=== PATIENT | male | born 1930 | race Caucasian/White ===

== ENCOUNTER → 2016-05-11 | Outpatient (CLI) | payer MEDICARE, OTHER ==
[~2016-05-11] MED LIST: ASPI-586 PO; BARIUM SUSPENSION 2.1% (VANILLA SILQ) 450 ML PO ONE; CLOP75TA69 PO; LEVO500T2 PO; PHEN-640 PO; ROPI0.5T2 PO; SIMV80TA3 PO
--- NOTE | 2016-05-11 13:24 | Diagnostic Imaging Report ---
PROCEDURE: CT chest, abdomen, and pelvis without contrast. TECHNIQUE: Multiple contiguous axial images were obtained through the chest, abdomen, and pelvis without the use of intravenous contrast. INDICATION: Bladder CA. COMPARISON: 11/05/2015. FINDINGS: CT chest: The lungs are well aerated. No infiltrates or masses are present. No evidence of emphysematous changes or bronchiectasis. No mediastinal or hilar adenopathy of pathologic size. Aorta is calcified without evidence of aneurysm. No pleural effusions or pericardial effusions. IMPRESSION: No changes to suggest metastatic disease. CT abdomen and pelvis without: Liver appears normal. Gallbladder is normal. Bile ducts are normal. The pancreas is normal. The spleen is normal. The adrenal glands are normal. Kidneys show no evidence of obstruction or calculi. Previously described cystic lesion off the lower pole of the left kidney is again noted. This has not changed in appearance. The aorta is calcified without evidence of aneurysm. No intra-abdominal adenopathy. The stomach and small bowel are not distended. The colon shows moderate stool burden throughout, consistent with some constipation. There are a few diverticula in the sigmoid colon though no evidence of diverticulitis. The prostate is enlarged without significant change. Bladder does show some urine present with smooth bladder wall. Surgical changes from right inguinal hernia noted. Sclerotic lesion again noted along the acetabulum of the right iliac wing which is unchanged. No new lesions have developed. IMPRESSION: 1. Stable CT abdomen and pelvis with no changes to suggest metastatic disease. 2. Findings consistent with moderate constipation. Dictated by: Dictated on workstation # [id number]
--- NOTE | 2016-05-11 15:49 | Diagnostic Imaging Report ---
INDICATION: Bladder cancer. TECHNIQUE: Whole body bone scan performed in the routine fashion with IV injection of 26.7 mCi of technetium 99m MDP, with comparison to 11/05/2015. FINDINGS: There is physiologic uptake of the tracer throughout the skeleton. There is abnormal increased uptake over the right shoulder which is unchanged compared to the prior study. This correlates with marked degenerative change of the left shoulder noted on CT study. There is no osseous metastatic disease evident. There are mild degenerative changes of both knees. IMPRESSION: Stable bone scan compared with 11/05/2015. Increased uptake over the shoulder is seen promptly which is probably degenerative and unchanged compared to the prior study. There is mild degenerative change in both knees. Dictated by: Dictated on workstation # [id number]
== END ==
LOC: CARD 11:30
PROVIDERS: ATTEND Urology
DX: C67.9 Malignant neoplasm of bladder, unspecified (principal)
CPT/HCPCS: 71250; 74176; 78306

== ENCOUNTER 2019-02-03 03:01 | Inpatient (IN) | payer MEDICARE, OTHER ==
[~2019-02-03] VITALS: Ht 170 cm; Wt 74.8 kg
[~2019-02-03 03:01] MED LIST changes: -BARIUM SUSPENSION 2.1% (VANILLA SILQ) 450 ML PO ONE; +SIMV80TA21 PO; -SIMV80TA3 PO
--- NOTE | 2019-02-03 03:01 | NUR ---
REPORT RECEIVED FROM RUDDY CHRIS - [facility] PROCESS PLANT OPERATOR.
--- NOTE | 2019-02-03 03:43 | NUR ---
RUDDY CHRIS FROM [facility] ER CALLED TO INFORM THIS RN THAT PT U.A. POSITIVE FOR UTI AND THAT PT RECEIVED ROCEPHIN 1G AND HAD A MILD REACTION TO THIS ABX. RUDDY CHRIS ALSO INFORMED THIS RN THAT PT RECEIVED 25MG BENADRYL IV PRIOR TO LEAVING ER WITH EMS.
--- NOTE | 2019-02-03 04:14 | NUR ---
KAMRAN MOJICA admitted to room 508-1, with an admitting diagnosis of SHORTNESS OF AIR, ELEVATED TROPONIN, on 02/03/19 from via STRETCHER, accompanied by EMS STAFF.KAMRAN MOJICA introduced to surroundings, call light, bed controls, phone, TV, temperature control, lights, meal times, smoking policy, visitor policy, side rail policy, bathrooms and showers. Patient Rights given to patient in the handbook. KAMRAN MOJICA verbalizes understanding that [facility] is not responsible for the loss or damage to any personal effects or valuables that are kept in the patients possession during their hospitalization. KAMRAN MOJICA verbalizes understanding of Interdisciplinary Patient Education. Patient and/or family were informed about the Rapid Response Team and its purpose.
[2019-02-03] MEDS ORDERED: HEParin DRIP 25000 UNIT/500ML 500 ML IV ONE (04:30)
--- NOTE | 2019-02-03 04:39 | NUR ---
THIS RN CALLED DR. STANLEY TO INFORM HIM OF PT'S ARRIVAL AND TO RECEIVE ORDERS. SEE ORDER HISTORY.
[2019-02-03 05:23] VITALS: BP 83/50
--- NOTE | 2019-02-03 05:53 | NUR ---
THIS RN CALLED DR. STANLEY TO INFORM HIM OF ROGER RED BLOOD IN URINE. THIS RN INFORMED HIM THAT 1550ML DRAINED FROM NOGUERA CATHETER COLLECTION BAG THAT IS ROGER RED WITH BLOOD CLOTS. NO NEW ORDERS OBTAINED AT THIS TIME.
[2019-02-03 06:03] LABS: HEMOGLOBIN 13.1 G/DL (13.3-17.7); MEAN PLATELET VOLUME 11.5 FL (7.4-10.4); RED CELL DISTRIBUTION WIDTH 14.5 % (10.0-14.5); WHITE BLOOD COUNT 8.3 10^3/uL (4.3-11.0)
[2019-02-03 06:22] LABS: ALBUMIN 3.4 GM/DL (3.2-4.5); BILIRUBIN,TOTAL 0.6 MG/DL (0.1-1.0); CALCIUM 8.6 MG/DL (8.5-10.1); CREATININE SERUM 1.36 MG/DL (0.60-1.30); TOTAL PROTEIN 5.8 GM/DL (6.4-8.2)
--- NOTE | 2019-02-03 06:25 | NUR ---
SCDs REMOVED FROM PT'S BLE DUE TO EXTREME DISCOMFORT. PT SUFFERS FROM RESTLESS LEG SYNDROME AND STATED THAT HE "CAN'T DO IT ANYMORE."
[2019-02-03] MEDS ORDERED: FLU QUADRIvalent (5+ YOA) 2019-2020 (AFLURIA) 0.5 ML IM ONE (07:15)
--- NOTE | 2019-02-03 07:22 | Consultation-Cardiology ---
HPI-Cardiology Cardiology Consultation Date of Consultation 02/03/19 Date of Admission Time Seen by Provider: 07:16 Indication: Non-ST elevation myocardial infarction HPI 88 years old gentleman with history of permanent pacemaker, aortic valve stenosis. Had extensive workup done in [facility] in May 2018 for possible valve replacement, he was asymptomatic at that time and decision was made to treat him conservatively. Over the past month, he started having increasing shortness of breath with exertion, has been worsening until last night where he was unable to lay down flat due to increased shortness of breath. Came into the emergency room for evaluation. He was noted to have mild elevation in troponin level. He denied any active chest pain. No palpitation. No syncope or near syncopal episode he was started on heparin drip and started to have hematuria Home Medications & Allergies Allergies: Coded Allergies: ceftriaxone (Verified Allergy, Mild, itching, 12/06/14) Iodinated Contrast Media - IV Dye (Verified Allergy, Unknown, RASH, 12/03/14) Home Medication List Reviewed: Yes KHD-Czipxm-Sxvzjw Hx Patient Social History Marital Status: Employed/Student: retired Alcohol Use: Rarely Uses Recreational Drug Use: No Smoking Status: Never a Smoker Recent Foreign Travel: No Recent Infectious Disease Expo: No Recent Hopitalizations: No Physical Abuse Screen: No Sexual Abuse: No Immunizations Up To Date Date of Pneumonia Vaccine: Feb 03, 2018 Date of Influenza Vaccine: Feb 03, 2018 Past Medical History Discussed below Family Medical History Family History: FH: breast cancer G8 SISTER Myocardial infarction G8 BROTHER Review of Systems-General Review of Systems Constitutional: see HPI; No chills, No diaphoresis, No dizziness, No fever; malaise; No weakness, No weight gain, No weight loss, No other EENTM: see HPI, no symptoms reported Respiratory: see HPI; No cough; dyspnea on exertion; No hemoptysis; orthopnea; No phlegm; short of breath; No stridor, No wheezing, No other Cardiovascular: see HPI; No chest pain; edema; No Hx of Intervention, No palpitations, No syncope, No vascular heart diseas, No other Gastrointestinal: no symptoms reported, see HPI Genitourinary: see HPI, hematuria Musculoskeletal: no symptoms reported, see HPI Skin: no symptoms reported, see HPI Psychiatric/Neurological: No Symptoms Reported, See HPI Reviewed Test Results Reviewed Test Results Lab Laboratory Tests Test 02/03/19 05:50 Range/Units White Blood Count 8.3 4.3-11.0 10^3/uL Red Blood Count 4.71 4.35-5.85 10^6/uL Hemoglobin 13.1 L 13.3-17.7 G/DL Hematocrit 41 40-54 % Mean Corpuscular Volume 86 80-99 FL Mean Corpuscular Hemoglobin 28 25-34 PG Mean Corpuscular Hemoglobin Concent 32 32-36 G/DL Red Cell Distribution Width 14.5 10.0-14.5 % Platelet Count 159 130-400 10^3/uL Mean Platelet Volume 11.5 H 7.4-10.4 FL Prothrombin Time 14.0 12.2-14.7 SEC INR Comment 1.0 0.8-1.4 Activated Partial Thromboplast Time 98 H 24-35 SEC Sodium Level 142 135-145 MMOL/L Potassium Level 4.0 3.6-5.0 MMOL/L Chloride Level 108 H 98-107 MMOL/L Carbon Dioxide Level 23 21-32 MMOL/L Anion Gap 11 5-14 MMOL/L Blood Urea Nitrogen 21 H 7-18 MG/DL Creatinine 1.36 H 0.60-1.30 MG/DL Estimat Glomerular Filtration Rate 50 BUN/Creatinine Ratio 15 Glucose Level 95 70-105 MG/DL Calcium Level 8.6 8.5-10.1 MG/DL Corrected Calcium 9.1 8.5-10.1 MG/DL Total Bilirubin 0.6 0.1-1.0 MG/DL Aspartate Amino Transf (AST/SGOT) 23 5-34 U/L Alanine Aminotransferase (ALT/SGPT) 23 0-55 U/L Alkaline Phosphatase 55 40-136 U/L Troponin I 0.738 *H <0.028 NG/ML B-Type Natriuretic Peptide 2257.0 H <100.0 PG/ML Total Protein 5.8 L 6.4-8.2 GM/DL Albumin 3.4 3.2-4.5 GM/DL Thyroid Stimulating Hormone (TSH) 2.55 0.35-4.94 UIU/ML Physical Exam Physical Exam Vital Signs Vital Signs - First Documented 02/03/19 02/03/19 04:22 05:23 Temp 36.3 Pulse 78 Resp 16 B/P (MAP) 83/50 Pulse Ox 98 O2 Delivery Nasal Cannula O2 Flow Rate 2.00 Capillary Refill : Height, Weight, BMI Height: 5'9.00" Weight: 179lbs. 0.0oz. 81.453218vv; 27.75 BMI Method: General Appearance: WD/WN, Mild Distress Eyes: Bilateral Eye Normal Inspection, Bilateral Eye PERRL, Bilateral Eye EOMI HEENT: PERRL/EOMI, TMs Normal, Normal ENT Inspection, Pharynx Normal, Moist Mucous Membranes Neck: Full Range of Motion, Normal Inspection, Non Tender, Supple, Carotid Bruit Respiratory: Chest Non Tender, No Accessory Muscle Use, No Respiratory Distress, Crackles Cardiovascular: Regular Rate, Rhythm, No Edema, No JVD, Normal Peripheral Pulses, Systolic Murmur, Gallop/S3 Gastrointestinal: Normal Bowel Sounds, No Organomegaly, No Pulsatile Mass, Non Tender, Soft Back: Normal Inspection, No CVA Tenderness, No Vertebral Tenderness Extremity: Normal Capillary Refill, Normal Inspection, Normal Range of Motion, Non Tender, No Calf Tenderness, Pedal Edema (Mild) Neurologic/Psychiatric: Alert, Oriented x3, No Motor/Sensory Deficits, Normal Mood/Affect Skin: Normal Color, Warm/Dry Lymphatic: No Adenopathy A/P-Cardiology Admission Diagnosis Acute non-ST elevation myocardial infarctions Coronary artery disease Congestive heart failure, acute left ventricular systolic dysfunction, probably secondary to valvular heart disease Aortic valve stenosis Assessment/Plan Acute non-ST elevation myocardial infarction, baseline paced rhythm, no acute EKG changes, persistent elevation in troponin. Receiving heparin drip, has been on Plavix as an outpatient, currently started on aspirin Coronary artery disease reported that he had a stress test in May 2018 and reported negative done in [facility] Aortic valve stenosis, probably severe, was evaluated in [facility] for possible valve replacement, decision was made to treat him conservatively due to the fact that he was asymptomatic, for the past month he has been having increasing shortness of breath. He contacted Dr. Elder and he is scheduled to see him next week Congestive heart failure, acute left ventricular systolic dysfunction, probably secondary to valvular heart disease, underlying coronary artery disease cannot be excluded at this time, may need a cardiac catheterization Permanent pacemaker, not sure what type of pacemaker he has. Had recent pacemaker checked. Continue to monitor Hypotension, received IV Lasix 40 mg, continue to monitor blood pressure closely, cannot tolerate beta blockers, PAMELA inhibitor and/or ARB due to hypotension Hyperlipidemia, maintained on simvastatin Hematuria, history of bladder cancer, reported that he has been in remission Clinical Quality Measures DVT/VTE Risk/Contraindication: Risk Factor Score Per Nursin RFS Level Per Nursing on Admit: 4+=Very High LONDON STANLEY MD Feb 03, 2019 07:21
[2019-02-03 08:00] VITALS: BP 125/72
--- NOTE | 2019-02-03 08:36 | History & Physical-Hospitalist ---
History of Present Illness HPI/Chief Complaint Pt is an 88yoCM with a PMH of aortic stenosis, CAD, bladder cancer, melanoma, and pacemaker placement who presented to the ER duet o orthopnea. He reports that he underwent workup for his aortic valve but as he was asymptomatic conservative management was recommended. Over the past couple of weeks he has not been able to walk his normal 2-3 miles with his due to weakness and shortness of breath. Last night when he laid down to go to bed he was unable to catch his breath and he decided to seek evaluation in the ER. There he was found to have a mildly elevated troponin and was [place] [facility] [place]. He was also started on a heparin gtt due to concern for NSTEMI. Overnight he developed miguel red blood in his catheter. Source: patient, family Date Seen 02/03/19 Time Seen by a Provider: 07:45 Attending Physician Jose Ruvalcaba MD PCP Davon Veronica DO Referring Physician Date of Admission Feb 03, 2019 at 04:16 Home Medications & Allergies Home Medications Reviewed patient Home Medication Reconciliation performed by pharmacy medication reconciliations instructor adjunct surgical technician and/or nursing. Patients Allergies have been reviewed. Allergies Allergies Coded Allergies ceftriaxone (Verified Allergy, Mild, itching, 12/06/14) Iodinated Contrast Media - IV Dye (Verified Allergy, Unknown, RASH, 12/03/14) Past Upjlwxi-Xchbkx-Cqxozy Hx Past Med/Social Hx: Reviewed Nursing Past Med/Soc Hx Patient Social History Marrital Status: Employed/Student: retired Alcohol Use: Rarely Uses Alcohol Beverage of Choice: Beer Recreational Drug Use: No Smoking Status: Never a Smoker Physical Abuse Screen: No Sexual Abuse: No Recent Foreign Travel: No Contact w/other who traveled: No Recent Hopitalizations: No Recent Infectious Disease Expo: No Immunizations Up To Date Pediatric: No Date of Pneumonia Vaccine: Feb 03, 2018 Date of Influenza Vaccine: Feb 03, 2018 Seasonal Allergies Seasonal Allergies: No Past Medical History Surgeries: Abdominal, Appendectomy, Pacemaker Cardiac: Coronary Artery Disease, Irregular Heartbeat, Valvular Heart Disease Cancer: Bladder, Skin (melanoma) Did You Recieve Any Treatments: Yes What Type of Treatment Did You: Chemotherapy, Surgical Intervention Cancer: RECENT SURGERY FOR SKIN CANCER REMOVAL 01/31/19 FROM LT AXILLARY AREA AND LT FOREARM. History of Blood Disorders: No Adverse Reaction to Blood Mendez: No Family History Reviewed Nursing Family Hx FH: breast cancer G8 SISTER Myocardial infarction G8 BROTHER Review of Systems Constitutional: No chills, No fever; weakness EENTM: no symptoms reported Respiratory: dyspnea on exertion, short of breath Cardiovascular: No chest pain, No syncope; vascular heart diseas Gastrointestinal: no symptoms reported Genitourinary: decreased output, hematuria Musculoskeletal: no symptoms reported Skin: hx of skin cancer Psychiatric/Neurological: No Symptoms Reported Physical Exam Physical Exam Vital Signs Vital Signs - First Documented 02/03/19 02/03/19 04:22 05:23 Temp 36.3 Pulse 78 Resp 16 B/P (MAP) 83/50 Pulse Ox 98 O2 Delivery Nasal Cannula O2 Flow Rate 2.00 Capillary Refill : Height, Weight, BMI Height: 5'9.00" Weight: 179lbs. 0.0oz. 81.234428be; 27.75 BMI Method: General Appearance: No Apparent Distress, WD/WN HEENT: PERRL/EOMI, Moist Mucous Membranes; No Scleral Icterus (L), No Scleral Icterus (R) Neck: Supple; No Lymphadenopathy (L), No Lymphadenopathy (R) Respiratory: Lungs Clear, No Respiratory Distress Cardiovascular: Regular Rate, Rhythm, Systolic Murmur Gastrointestinal: Normal Bowel Sounds, Non Tender, Soft Genital/Rectal: Other (pritchett in place with hematuria) Extremity: No Calf Tenderness, No Pedal Edema Neurologic/Psychiatric: Alert, Oriented x3, Normal Mood/Affect Skin: Normal Color, Warm/Dry Results Results/Procedures Labs Laboratory Tests 02/03/19 05:50 Patient resulted labs reviewed. Assessment/Plan Admission Diagnosis NSTEMI Admission Status: Inpatient Order (span 2 midnights) Reason for Inpatient Admission: elevated troponin, worsening aortic stenosis Assessment and Plan NSTEMI Aortic Stenosis Echo ordered, being done while I was in her room Discussed with Dr Chavez, likely worsening aortic stenosis Trend troponin Telemetry Currently on heparin gtt- if troponin trends down with DC H/o bladder cancer Hematuria Dr Mitchell consulted, recommends CBI Attempt to get off heparin as soon as possible DVT PPX: on heparin Clinical Quality Measures DVT/VTE Risk/Contraindication: Risk Factor Score Per Nursin RFS Level Per Nursing on Admit: 4+=Very High JOSE RUVALCABA MD Feb 03, 2019 08:36
[2019-02-03] MEDS: ASPIRIN E.C. 81 MG (ECOTRIN) TAB PO SCH (09:00)
[2019-02-03] MEDS ORDERED: CLOP75TA28 PO (10:32)
[2019-02-03] MEDS ORDERED: LORA10TA76 PO (10:32)
[2019-02-03] MEDS ORDERED: ROPI1TAB2 PO (10:32)
[2019-02-03] MEDS ORDERED: HYDR-3812 PO (10:33)
--- NOTE | 2019-02-03 10:33 | NUR ---
SPOKE WITH THE PATIENT ABOUT HIS MEDICATIONS. WE WENT OVER THE EXT MED HX AND HE VERIFIED HOW HE TAKES THEM. HE STATES HE TAKES AN OTC ANTIHISTAMINE, HE IS UNSURE WHICH SPECIFIC ONE HE TAKES, I ADDED CLARITIN AT THIS TIME.
[2019-02-03 12:00] VITALS: BP 124/74
--- NOTE | 2019-02-03 12:44 | CONSULTATION REPORT ---
DATE OF SERVICE: 02/03/2019 ATTENDING PHYSICIAN: Dr. Ruvalcaba. SUMMARY: An 88-year-old white man, known to me because of history of bladder tumor, last two cystoscopies at the office were negative for recurrence, has been transferred from [place] because of question [place]. He was started on heparin and then started having gross hematuria. A catheter was inserted with bloody urine connected to a catheter, but is draining well and there are no clots that I could see. A repeat troponin is pending to decide on the next step cardiac grossman. IMPRESSION: Gross hematuria secondary to blood thinners with a history of cancer of the bladder. PLAN: If needed, a 3-way catheter with CBI with sterile water. Later on, he will need a cystoscopy. Hopefully, that there is no cardiac issue and he can be taken off the heparin, follow up a CBC and possible transfuse p.r.n. I told Dr. Grove, the patient and his that I am going for a meeting this weekend leaving this afternoon; however, I will be accessible by phone if need anything. Job ID: [id number] DocumentID: [id number] Dictated Date: 02/03/2019 09:29:56 Drawbridge Operator Date: 02/03/2019 12:43:50 Dictated By: NISSA ROBLEDO MD
[2019-02-03] MEDS ORDERED: ACETAMINOPHEN 325 MG TABLET PO PRN (12:45)
[2019-02-03] MEDS ORDERED: ANTACID SUSP 30 ML UDC (MYLANTA) PO PRN (12:45)
[2019-02-03] MEDS ORDERED: MILK OF MAGNESIA 400 MG/5 ML 30 ML UDC PO PRN (12:45)
[2019-02-03] MEDS ORDERED: ONDANSETRON 4 MG/2 ML (SDV) Z0FRAN IV PRN (12:45)
[2019-02-03] MEDS ORDERED: NON-FORMULARY MEDICATION 1 EA EA (Hydrocodone/Acetaminophen (Hydrocodone-Acetamin 5-325 mg PO PRN (12:45)
[2019-02-03] MEDS ORDERED: MELATONIN 3 MG TABLET PO PRN (12:45)
[2019-02-03] MEDS ORDERED: BISACODYL 10 MG SUPP (DULCOLAX) PR PRN (12:45)
[2019-02-03] MEDS ORDERED: BENZONATATE 100 MG (TESSALON) CAPSULE PO PRN (12:45)
[2019-02-03] MEDS ORDERED: HYDROcodone/APAP 5 MG/325 MG (LORTAB) TAB PO PRN (13:30)
[2019-02-03 16:00] VITALS: BP 96/61
[2019-02-03 20:00] VITALS: BP 149/88
[2019-02-03] MEDS: rOPINIRole 1 MG (REQUIP) TABLET PO SCH (21:00)
[2019-02-03] MEDS ORDERED: NON-FORMULARY MEDICATION 1 EA EA (Simvastatin 80 MG) PO SCH (21:00)
[2019-02-03] MEDS ORDERED: NON-FORMULARY MEDICATION 1 EA EA (Ropinirole HCl 1 MG) PO SCH (21:00)
[2019-02-03] MEDS: SIMvastatin 40 MG (ZOCOR) TAB PO SCH (21:00)
[2019-02-04] VITALS: BP 144/83
[2019-02-04 03:08] LABS: HEMOGLOBIN 12.4 G/DL (13.3-17.7); MEAN PLATELET VOLUME 11.9 FL (7.4-10.4); RED CELL DISTRIBUTION WIDTH 14.5 % (10.0-14.5)
[2019-02-04 03:33] LABS: ALBUMIN 3.1 GM/DL (3.2-4.5); BILIRUBIN,TOTAL 0.7 MG/DL (0.1-1.0); CALCIUM 8.3 MG/DL (8.5-10.1); CREATININE SERUM 1.29 MG/DL (0.60-1.30); POTASSIUM 3.8 MMOL/L (3.6-5.0); TOTAL PROTEIN 5.4 GM/DL (6.4-8.2)
[2019-02-04 04:00] VITALS: BP 137/79
[2019-02-04] MEDS: ASPIRIN E.C. 81 MG (ECOTRIN) TAB PO SCH (08:43)
[2019-02-04] MEDS: LORATADINE (CLARITIN) 10 MG TAB PO SCH (08:43)
[2019-02-04 08:55] VITALS: BP 110/64
[2019-02-04] MEDS ORDERED: NON-FORMULARY MEDICATION 1 EA EA (Loratadine (Claritin) 10 MG) PO SCH (09:00)
[2019-02-04] MEDS ORDERED: FUROSEMIDE 40 MG/4 ML INJ (LASIX) IVP NR (09:15)
--- NOTE | 2019-02-04 09:17 | Cardiology Progress Note ---
Subjective Date Seen by Provider: Feb 04, 2019 Time Seen by Provider: 09:14 Subjective/Events-last exam Patient is feeling better, breathing better, still having hematuria Review of Systems General: No Chills, No Night Sweats, No Fatigue, No Malaise, No Appetite, No Other HEENT: No Head Aches, No Visual Changes, No Eye Pain, No Ear Pain, No Dysphasia, No Sinus Congestion, No Post Nasal Drip, No Sore Throat, No Other Pulmonary: Dyspnea; No Cough, No Pleuritic Chest Pain, No Other Cardiovascular: No: Chest Pain, Palpitations, Orthopnea, Paroxysmal Noc. Dyspnea, Edema, Lt Headedness, Other Objective-Cardiology Exam Last Set of Vital Signs Vital Signs 02/04/19 02/04/19 04:00 07:00 Temp 37.1 Pulse 89 Resp 16 B/P (MAP) 137/79 (98) Pulse Ox 98 O2 Delivery Nasal Cannula O2 Flow Rate 2.00 Capillary Refill : I&O Intake and Output 02/04/19 00:00 Intake Total 567 ml Output Total 3825 ml Balance -3258 ml Intake Oral 400 ml IV Total 167 ml Output Urine Total 3825 ml Daily Weight Change No No General: Alert, Oriented X3, Cooperative HEENT: Atraumatic, PERRLA Neck: Supple, No JVD, No Thyromegaly Lungs: Normal Air Movement, Other (Bilateral rhonchi) Heart: Regular Rate, Normal S1, Normal S2, Other (Aortic stenosis murmur) Abdomen: Normal Bowel Sounds, Soft, No Tenderness, No Hepatosplenomegaly, No Masses Extremities: No Clubbing, No Cyanosis, Normal Pulses, No Tenderness/Swelling, Other (Trace edema) Skin: No Rashes, No Breakdown, No Significant Lesion Neuro: Normal Gait, Normal Speech, Strength at 5/5 X4 Ext, Normal Tone, Sensation Intact Psych/Mental Status: Mental Status NL, Mood NL Results Lab Laboratory Tests 02/04/19 02:33 A/P-Cardiology Admission Diagnosis Acute non-ST elevation myocardial infarctions Coronary artery disease Congestive heart failure, acute left ventricular systolic dysfunction, probably secondary to valvular heart disease Aortic valve stenosis Assessment/Plan Type II myocardial infarction secondary to heart failure, troponin is improving on conservative management. Continue to monitor Hematuria, persistent, has been off heparin since last night, I will discontinue Denney catheter and monitor. Severe aortic valve stenosis, echocardiogram showed valve area of 0.8 cm, was evaluated at [facility] for possible valve replacement, need to be reevaluated and consider TAVR Congestive heart failure, acute left ventricular systolic dysfunction, secondary to valvular heart disease, underlying coronary artery disease cannot be excluded. Continue with conservative management due to the active hematuria. Permanent pacemaker, not sure what type of pacemaker he has. Had recent pacemaker checked. Continue to monitor Hypertension, status post multiple episode of hypotension, continue on Lasix at this time and monitor tolerance and response. Hyperlipidemia, maintained on simvastatin Hematuria, history of bladder cancer, reported that he has been in remission, remove Denney and monitor Clinical Quality Measures DVT/VTE Risk/Contraindication: Risk Factor Score Per Nursin RFS Level Per Nursing on Admit: 4+=Very High LONDON STANLEY MD Feb 04, 2019 09:17
--- NOTE | 2019-02-04 11:11 | Physical Therapy Evaluation ---
PT Evaluation-General Medical Diagnosis Admission Date Feb 03, 2019 at 08:41 Medical Diagnosis: NSTEMI Onset Date: Feb 03, 2019 Therapy Diagnosis Therapy Diagnosis: debility Height/Weight Height (Feet): 5 Height (Inches): 9.00 Weight (Pounds): 179 Weight (Ounces): 0.0 Precautions Precautions/Isolations: Fall Prevention, Standard Precautions Weight Bear Status Right Lower Extremity: Right Weight Bearing/Tolerated Left Lower Extremity: Left Weight Bearing/Tolerated Referral Physician: Peg Reason for Referral: Evaluation/Treatment Medical History Pertinent Medical History: CAD Additional Medical History bladder cancer Current History s/p heart cath Reviewed History: Yes Social History Home: Single Level Current Living Status: Spouse Prior Prior Level of Function SCALE: Activities may be completed with or without assistive devices. 2-Mptjuchcsj-fahburs completes the activity by him/herself with no assistance from a helper. 5-Set-up or Clean-up Assistance-helper sets up or cleans up; patient completes activity. [place] assists only prior to or following the activity. 4-Supervision or Touching Assistance-helper provides verbal cues and/or touching/steadying and/or contact guard assistance as patient completes activity. Assistance may be provided throughout the activity or intermittently. 3-Partial/Moderate Assistance-helper does LESS THAN HALF the effort. [place] lifts, holds or supports trunk or limbs, but provides less than half the effort. 2-Substantial/Maximal Assistance-helper does MORE THAN HALF the effort. [place] lifts or holds trunk or limbs and provides more than half the effort. 7-Fazfbyknt-xsumug does ALL the effort. Patient does none of the effort to complete the activity. Or, the assistance of 2 or more helpers is required for the patient to complete the activity. If activity was not attempted, code reason: 7-Patient Refused. 9-Not Applicable-not attempted and the patient did not perform the activity before the current illness, exacerbation or injury. 10-Not Attempted due to Environmental Limitations-(lack of equipment, weather restraints, etc.). 88-Not Attempted due to Medical Conditions or Safety Concerns. Bed Mobility: 6 Transfers (B,C,W/C): 6 Gait: 6 Stairs: 6 Indoor Mobility (Ambulation): Independent Stairs: Independent Prior Devices Use: None PT Evaluation-Current Subjective Patient agrees to PT. Pain Numeric Pain Scale: 0-No Pain Location: No Pain Reported Objective Patient Orientation: Normal For Age Attachments: Denney Catheter ROM/Strength ROM Lower Extremities bilateral LE WFL Strength Lower Extremities 5/5 grossly bilateral LE Integumentary/Posture Integumentary refer to nursing notes Bowel Incontinence: No Bladder Incontinence: Denney Cath Posture WFL Neuromuscular (Tone, Coordination, Reflexes) grossly intact Sensory Vision: Wears Glasses Hearing: Functional Sensation Right Lower Extremit: Intact Sensation Left Lower Extremity: Intact Transfers Roll Left to Right (QC): 6 Sit to Lying (QC): 6 Lying to Sitting/Side of Bed(Q: 6 Sit to Stand (QC): 6 Chair/Gfh-ux-Ophry Xfer(QC): 6 Gait Does the Patient Walk?: Yes Mode of Locomotion: Walk Anticipated Mode of Locomotion: Walk Distance (FIM): 3=150 ft Walk 10 feet (QC): 6 Walk 50 ft with 2 Turns(QC): 6 Walk 150 ft (QC): 6 Distance: 400' Gait Assistive Device: FWW Comments/Gait Description safe and functional Balance Sitting Static: Normal Sitting Dynamic: Normal Standing Static: Normal Standing Dynamic: Normal Assessment/Needs 88 y.o. male, is currently at [facility] with all gross motor skills and does not require skilled therapy intervention. PT instructed family to ambulate with patient PRN in formerly [facility]. RN notified Rehab Potential: Fair PT Plan Treatment/Plan Treatment Plan: Discontinue PT, goals met Treatment Plan: Other Treatment Duration: Feb 04, 2019 Frequency: 1 time per week Estimated Hrs Per Day: .25 hour per day Patient and/or Family Agrees t: Yes Time/GCodes Time In: 1006 Time Out: 1018 Total Billed Treatment Time: 12 Total Billed Treatment 1 visit EVLowC 12 min MAR LOMBARDO PT Feb 04, 2019 11:11
[2019-02-04 12:00] VITALS: BP 110/72
--- NOTE | 2019-02-04 12:18 | Progress Note - Hospitalist ---
Subjective HPI/CC On Admission Date Seen by Provider: Feb 04, 2019 Time Seen by Provider: 07:50 Pt is an 88yoCM with a PMH of aortic stenosis, CAD, bladder cancer, melanoma, and pacemaker placement who presented to the ER duet o orthopnea. He reports that he underwent workup for his aortic valve but as he was asymptomatic conservative management was recommended. Over the past couple of weeks he has not been able to walk his normal 2-3 miles with his due to weakness and shortness of breath. Last night when he laid down to go to bed he was unable to catch his breath and he decided to seek evaluation in the ER. There he was found to have a mildly elevated troponin and was transferred here from [facility] for cardiology evaluation. He was also started on a heparin gtt due to concern for NSTEMI. Overnight he developed miguel red blood in his catheter. Subjective/Events-last exam Pt reports doing well. Feeling better. Plan to remove pritchett today. Objective Exam Vital Signs Vital Signs Date Time Temp Pulse Resp B/P (MAP) Pulse Ox O2 Delivery O2 Flow Rate FiO2 02/04/19 09:24 92 Room Air 02/04/19 08:55 36.9 81 16 110/64 (79) 2.00 Capillary Refill : General Appearance: No Apparent Distress, WD/WN Respiratory: Lungs Clear, No Respiratory Distress Cardiovascular: Regular Rate, Rhythm, Systolic Murmur Neurologic/Psychiatric: Alert, Oriented x3 Results/Procedures Lab Laboratory Tests 02/04/19 02:33 Patient resulted labs reviewed. Assessment/Plan Assessment and Plan Assess & Plan/Chief Complaint NSTEMI Aortic Stenosis CHF- systolic Echo reveals critical aortic stenosis Discussed with Dr Chavez, will need outpatient referral back to [facility] for evaluation ofor valve replacement Telemetry Troponin trended down- likely Type II KS Continue Lasix H/o bladder cancer Hematuria Dr Mitchell consulted,apreciate recs DC pritchett today Weakness PT/OT DVT PPX: Lovenox Diagnosis/Problems Diagnosis/Problems (1) Aortic stenosis Status: Chronic Qualifiers: Cardiac valve disease etiology: nonrheumatic Qualified Codes: I35.0 - Nonrheumatic aortic (valve) stenosis (2) CHF (congestive heart failure) Status: Acute Qualifiers: Heart failure type: systolic Heart failure chronicity: acute on chronic Qualified Codes: I50.23 - Acute on chronic systolic (congestive) heart failure (3) NSTEMI (non-ST elevated myocardial infarction) Status: Acute (4) Bladder cancer Status: Chronic Qualifiers: Bladder location: unspecified site Qualified Codes: C67.9 - Malignant neoplasm of bladder, unspecified (5) Hematuria Status: Acute Qualifiers: Hematuria type: gross Qualified Codes: R31.0 - Gross hematuria Clinical Quality Measures DVT/VTE Risk/Contraindication: Risk Factor Score Per Nursin RFS Level Per Nursing on Admit: 4+=Very High JOSE PUGH MD Feb 04, 2019 12:18
--- NOTE | 2019-02-04 14:33 | Discharge Inst-Simple/Standard ---
Discharge Inst-Standard Reconcile Patient Problems Problems Reviewed?: Yes Patient Instructions/Follow Up Plan of Care/Instructions/FU: Please continue to take your medications as written. Please follow up with [facility] regarding your heart valve and with your PCP to follow up this hospital stay. Activity as Tolerated: Yes Discharge Diet: Cardiac Diet Return to The Hospital For: Chest pain, shortness of breath, confusion, passing out, if you feel you are getting worse. JOSE PUGH MD Feb 04, 2019 14:33
[2019-02-04 16:00] VITALS: BP 135/83
[2019-02-04] MEDS: FUROSEMIDE 40 MG/4 ML INJ (LASIX) IVP SCH (17:43)
[2019-02-04 20:00] VITALS: BP 127/76
[2019-02-04] MEDS: rOPINIRole 1 MG (REQUIP) TABLET PO SCH (21:26)
[2019-02-04] MEDS: SIMvastatin 40 MG (ZOCOR) TAB PO SCH (21:26)
[2019-02-05] VITALS: BP 119/69
[2019-02-05 03:44] LABS: HEMOGLOBIN 12.7 G/DL (13.3-17.7); MEAN PLATELET VOLUME 11.9 FL (7.4-10.4); RED CELL DISTRIBUTION WIDTH 14.2 % (10.0-14.5); WHITE BLOOD COUNT 8.2 10^3/uL (4.3-11.0)
[2019-02-05 04:00] VITALS: BP 128/74
[2019-02-05 04:01] LABS: CALCIUM 8.3 MG/DL (8.5-10.1); CREATININE SERUM 1.29 MG/DL (0.60-1.30); MAGNESIUM 1.7 MG/DL (1.6-2.4); POTASSIUM 3.6 MMOL/L (3.6-5.0)
[2019-02-05] MEDS: FUROSEMIDE 40 MG/4 ML INJ (LASIX) IVP SCH (06:47)
[2019-02-05 08:00] VITALS: BP 126/72
[2019-02-05] MEDS ORDERED: ASPI-983 PO (09:16)
[2019-02-05] MEDS: LORATADINE (CLARITIN) 10 MG TAB PO SCH (09:25)
[2019-02-05] MEDS: ASPIRIN E.C. 81 MG (ECOTRIN) TAB PO SCH (09:25)
[2019-02-05] MEDS ORDERED: POTA10TA PO (09:56)
[2019-02-05] MEDS ORDERED: FURO-125 PO (09:56)
[2019-02-05] MEDS ORDERED: LOSA25TA41 PO (09:57)
--- NOTE | 2019-02-05 10:12 | Cardiology Progress Note ---
Subjective Date Seen by Provider: Feb 05, 2019 Time Seen by Provider: 10:08 Subjective/Events-last exam Patient is sitting in a chair, feeling better. No more shortness of breath. No chest pain or palpitation. Had a long discussion with the patient and his family explained to him his situation and his condition and recommended urgent evaluation for possible valve replacement. Patient has an appointment with Dr. Elder tomorrow He will need to have a BMP done within the next week, he was started on multiple new medications as described below Review of Systems General: No Chills, No Night Sweats, No Fatigue, No Malaise, No Appetite, No Other HEENT: No Head Aches, No Visual Changes, No Eye Pain, No Ear Pain, No Dysphasia, No Sinus Congestion, No Post Nasal Drip, No Sore Throat, No Other Pulmonary: No Dyspnea, No Cough, No Pleuritic Chest Pain, No Other Cardiovascular: No: Chest Pain, Palpitations, Orthopnea, Paroxysmal Noc. Dyspnea, Edema, Lt Headedness, Other Objective-Cardiology Exam Last Set of Vital Signs Vital Signs 02/04/19 02/05/19 02/05/19 16:08 08:00 09:20 Temp 36.6 Pulse 76 Resp 18 B/P (MAP) 126/72 (90) Pulse Ox 94 O2 Delivery Room Air O2 Flow Rate 0.00 Capillary Refill : I&O Intake and Output 02/05/19 00:00 Intake Total 750 ml Output Total 1900 ml Balance -1150 ml Intake Oral 750 ml Output Urine Total 1900 ml # Voids 6 General: Alert, Oriented X3, Cooperative HEENT: Atraumatic, PERRLA Neck: Supple, No JVD, No Thyromegaly Lungs: Clear to Auscultation, Normal Air Movement Heart: Regular Rate, Normal S1, Normal S2, Other (Aortic stenosis murmur) Abdomen: Normal Bowel Sounds, Soft, No Tenderness, No Hepatosplenomegaly, No Masses Extremities: No Clubbing, No Cyanosis, No Edema, Normal Pulses, No Tenderness/Swelling Skin: No Rashes, No Breakdown, No Significant Lesion Neuro: Normal Gait, Normal Speech, Strength at 5/5 X4 Ext, Normal Tone, Sensation Intact Psych/Mental Status: Mental Status NL, Mood NL Results Lab Laboratory Tests 02/05/19 03:21 A/P-Cardiology Admission Diagnosis Acute non-ST elevation myocardial infarctions Coronary artery disease Congestive heart failure, acute left ventricular systolic dysfunction, probably secondary to valvular heart disease Aortic valve stenosis Assessment/Plan Type II myocardial infarction secondary to heart failure, troponin is improving on conservative management, will need cardiac catheterization in the near future, I deferred it to Dr. Elder or the animal handler at [facility] to proceed with cardiac catheterization prior to the valve replacement Gross hematuria after insertion of Denney and while on heparin drip, improved after removing Denney catheter and stopping heparin. Tolerating aspirin and Plavix without difficulties. Severe aortic valve stenosis, echocardiogram showed valve area of 0.8 cm, was evaluated at [facility] for possible valve replacement, need to be reevaluated and consider TAVR Congestive heart failure, acute left ventricular systolic dysfunction, secondary to valvular heart disease, underlying coronary artery disease cannot be excluded. Continue with conservative management due to the active hematuria, I started him on Lasix 20 mg daily, potassium 10 mEq daily, losartan 20 mg daily, will need to have BMP done within the next week Permanent pacemaker, not sure what type of pacemaker he has. Had recent pacemaker checked, followed by Dr. Elder Hypertension, status post multiple episode of hypotension, starting losartan and monitoring blood pressure cautiously as an outpatient Hyperlipidemia, maintained on simvastatin Hematuria, history of bladder cancer, reported that he has been in remission, followed by primary care team Clinical Quality Measures DVT/VTE Risk/Contraindication: Risk Factor Score Per Nursin RFS Level Per Nursing on Admit: 4+=Very High LONDON STANLEY MD Feb 05, 2019 10:11
== END 2019-02-05 11:38 | disposition home or self-care (01) | DRG 280 ==
LOC: INTOOBSV 04:16 → CSD 04:16 → OBSVTOIN 08:41
PROVIDERS: ADMIT Family Medicine; ATTEND Family Medicine
DX: I11.0 Hypertensive heart disease with heart failure (principal); I50.21 Acute systolic (congestive) heart failure; I21.A1 Myocardial infarction type 2; D68.32 Hemorrhagic disorder due to extrinsic circulating anticoagulants; I35.0 Nonrheumatic aortic (valve) stenosis; I25.10 Atherosclerotic heart disease of native coronary artery without angina pectoris; R31.9 Hematuria, unspecified; T45.515A Adverse effect of anticoagulants, initial encounter; I95.9 Hypotension, unspecified; Z85.820 Personal history of malignant melanoma of skin; Z95.0 Presence of cardiac pacemaker; Z92.21 Personal history of antineoplastic chemotherapy; Z85.51 Personal history of malignant neoplasm of bladder; Z28.21 Immunization not carried out because of patient refusal
CPT/HCPCS: 36415; 80048; 80053; 83735; 83880; 84443; 84484; 85027; 85610; 85730; 93005; 93306; 94761

== ENCOUNTER 2019-08-01 09:07 | Outpatient (CLI) | payer MEDICARE, OTHER ==
[~2019-08-01] VITALS: Ht 172 cm; Wt 70.0 kg
[~2019-08-01 09:07] MED LIST changes: +ACHD5005 PO; +ASPI-983 PO; +CLOP75TA28 PO; +FURO-125 PO; +LORA10TA76 PO; +LOSA25TA41 PO; +POTA10TA PO; -ROPI0.5T2 PO; +ROPI0.5T4 PO; +ROPI1TAB PO
[2019-08-01] MEDS ORDERED: TMSL.4C PO (10:04)
[2019-08-01] MEDS ORDERED: FURO20TA4 PO (10:04)
[2019-08-01] MEDS ORDERED: AMLO2.5T4 PO (10:04)
[2019-08-01] MEDS ORDERED: PANT40TA3 PO (10:04)
[2019-08-01] MEDS ORDERED: POTA10TA36 PO (10:04)
[2019-08-01] MEDS ORDERED: CARV6.252 PO (10:04)
[2019-08-03] MEDS ORDERED: HYOS0.1281 PO (13:08)
[2019-08-03] MEDS ORDERED: SULF1TAB35 PO (13:08)
[2019-08-03] MEDS ORDERED: PHEN-640 PO (13:08)
== END 2019-08-01 12:12 | disposition home or self-care (01) ==
LOC: PREOP 09:07
PROVIDERS: ATTEND Urology
DX: Z01.818 Encounter for other preprocedural examination (principal)

== ENCOUNTER → 2019-08-15 | Outpatient (CLI) | payer MEDICARE, OTHER ==
[~2019-08-15] MED LIST changes: +AMLO2.5T4 PO; +CARV6.252 PO; +FURO20TA4 PO; +HYOS0.1281 PO; +PANT40TA3 PO; +POTA10TA36 PO; +SULF1TAB35 PO; +TMSL.4C PO
--- NOTE | 2019-08-15 11:59 | Diagnostic Imaging Report ---
EXAMINATION: CT ABDOMEN/PELVIS WO. TECHNIQUE: Unenhanced CT imaging of the abdomen and pelvis was performed. 2-D reformats are created and submitted for interpretation. Automatic exposure controls were utilized to optimize patient dose. INDICATION: Bladder cancer. COMPARISON: CT chest, abdomen, and pelvis of 05/11/2016. FINDINGS: Evaluation of the abdominal viscera is mildly limited without contrast. Lower chest: The lung bases are clear. No pericardial or pleural effusion. Cardiomegaly with prior aortic valve implant. Peritoneum: No free intraperitoneal air or fluid. Liver and biliary system: Unenhanced liver is normal. The gallbladder is normal. No biliary duct dilation. Spleen and Pancreas: Spleen is normal. Unenhanced pancreas is grossly normal. Adrenals: Normal. tract: Abnormal wall thickening throughout the left noble-aspect of the urinary bladder, greatest at the level of the trigone. This results in obstructive uropathy with moderate to severe left-sided hydronephrosis and hydroureter. There is a possibility that the abnormal wall thickening extends into the left distal ureter at the ureterovesicular junction. No right-sided hydronephrosis. No solid renal mass on either side. GI tract: The stomach is partially filled with fluid and food debris and there is no wall thickening. No bowel obstruction. No pericolonic inflammatory changes. Normal appendix. Vasculature and Lymph nodes: Normal caliber aorta. No abdominal or pelvic lymphadenopathy. Musculoskeletal: No lytic skeletal lesion that would suggest metastatic disease. IMPRESSION: 1. Mass within the left noble-aspect of the urinary bladder involves the left ureterovesicular junction and results in moderate to severe left-sided obstructive hydronephrosis. 2. No pelvic lymphadenopathy or features of distant metastases in the abdomen and pelvis. Dictated by: Dictated on workstation # [id number]
--- NOTE | 2019-08-15 14:49 | Diagnostic Imaging Report ---
INDICATION: Bladder carcinoma. TECHNIQUE: The patient was administered 24.20 mCi technetium 99m MDP intravenously. Anterior and posterior whole-body planar images are obtained. CORRELATION STUDY: 05/11/2016. FINDINGS: Asymmetric uptake over the right shoulder is again demonstrated but overall appears slightly less intense. The remainder of the bilateral shoulder girdles is unremarkable. The upper extremity is incompletely imaged. The calvarium and maxillofacial structures appear unremarkable. The spine, bilateral ribs, and sternum appear unremarkable. The pelvis is unremarkable. The lower extremities demonstrate uptake over the left knee, likely degenerative. There is overall diminished uptake by the left kidney compared to the right kidney. This is likely owing to its known obstruction. IMPRESSION: Generally stable appearance about the followup bone scan. Uptake about the right shoulder overall appears slightly less pronounced at followup. Dictated by: Dictated on workstation # [id number]
== END ==
LOC: CARD 10:42
PROVIDERS: ATTEND Urology
DX: C67.9 Malignant neoplasm of bladder, unspecified (principal)
CPT/HCPCS: 74176; 78306

== ENCOUNTER → 2020-03-05 | Outpatient (CLI) | payer MEDICARE, OTHER ==
[~2020-03-05] MED LIST changes: +ASPI-1238 PO; -ASPI-983 PO; +CATHETER FLUSH 10 ML SYR IV PRN; +HOLD METFORMIN - RECEIVED CONTRAST 20 ML VIAL IV SCH; +IOHEXOL 350 MG/ML 100 ML (OMNIPAQUE 350) VIAL IV ONE; +NS 100 ML (IVPB) BAG IV ONE; -PANT40TA3 PO; +PANT40TA52 PO
[2020-03-05 09:11] LABS: POTASSIUM 4.7 MMOL/L (3.6-5.0)
[2020-03-05 09:12] LABS: CALCIUM 8.5 MG/DL (8.5-10.1)
[2020-03-05 09:16] LABS: CREATININE SERUM 1.7 MG/DL (0.60-1.30)
--- NOTE | 2020-03-05 11:23 | Diagnostic Imaging Report ---
PROCEDURE: CT abdomen and pelvis with and without contrast. TECHNIQUE: Precontrast acquisitions were acquired through the abdomen and pelvis. Multiple contiguous axial images were obtained through the abdomen and pelvis after the administration of intravenous contrast. Auto Exposure Controls were utilized during the CT exam to meet ALARA standards for radiation dose reduction. INDICATION: History of bladder cancer. Compared with the nonenhanced study 08/15/2019. The postsurgical changes of a cystectomy and ileal pouch with right lower quadrant diverting ostomy performed. There is a simple benign Bosniak 1 cyst stable off the lower pole of the left renal cortex with resolution of the previous left hydroureteronephrosis. The right kidney remains unobstructed with tiny parapelvic cyst at its lower pole as well as cortical cyst at its mid 3rd. No retroperitoneal lymphadenopathy, pelvic sidewalls, ileo-inguinal lymph node chains unremarkable. There is no suspicious lytic or sclerotic bone lesion. No basilar pulmonary nodule. There is a small hiatal hernia. The liver, spleen, adrenals and pancreas negative. The gallbladder unremarkable. There is a new right pelvic mass with central fluid attenuation and peripheral tissue like density. It abuts the right lateral wall of the rectum and mildly distorts its contour from extrinsic compression but no resultant obstruction or fecal impaction. Lesion measures 3.6 x 3.1 cm and is a new finding from prior. There is no adjacent edema to suggest abscess or inflammatory fluid collection. Necrotic neoplasm could not be excluded. Given the history of its interval development consider metabolic PET CT as further evaluation. If ultimately necessary, this would be amenable to percutaneous CT-guided sampling. IMPRESSION: New centrally fluid attenuating mass effect right hemipelvis abuts the right lateral contour of the upper rectum. 3.6 cm indeterminate complex fluid collection or necrotic neoplasm. Metabolic PET CT may provide additional diagnostic utility. No other potential metastatic deposits are found at this exam. Resolution of previous left hydronephrosis, status post cystectomy and ileal diversion. Dictated by: Dictated on workstation # [id number]
== END ==
LOC: RAD 08:34
PROVIDERS: ATTEND Urology
DX: C67.9 Malignant neoplasm of bladder, unspecified (principal)
CPT/HCPCS: 36415; 74178; 80048

== ENCOUNTER → 2020-03-26 | Outpatient (CLI) | payer MEDICARE ==
[~2020-03-26] MED LIST changes: -CATHETER FLUSH 10 ML SYR IV PRN; -HOLD METFORMIN - RECEIVED CONTRAST 20 ML VIAL IV SCH; -IOHEXOL 350 MG/ML 100 ML (OMNIPAQUE 350) VIAL IV ONE; -NS 100 ML (IVPB) BAG IV ONE
--- NOTE | 2020-03-26 20:17 | Diagnostic Imaging Report ---
EXAM: PET/CT INDICATION: Bladder cancer TECHNIQUE: PET/CT imaging was obtained from the base of the skull through the pelvis after the administration of 14.63 mCi of F-18 fluorodeoxyglucose injected into the right antecubital fossa. Limited CT imaging was utilized for localization and attenuation correction purposes. The low energy CT utilized for attenuation correction is not considered to be of high enough spatial resolution to allow in and of itself a separate anatomical analysis. Height: 5' 8" Weight 156 Blood glucose: 91 COMPARISON: There are no prior PET/CT examinations available for comparison. FINDINGS: The CT abdomen/pelvis exam of 03/05/2020 noted a 3.6 cm indeterminate complex fluid collection low in the pelvis on the right. This finding has developed in the interval since the previous CT abdomen/pelvis exam of 08/15/2019 and the possibility that this was neoplastic in nature was raised. On this exam, there is a ringlike area of hyper metabolic activity corresponding to this finding. The maximum SUV of the wall of this area is 6.0 and consequently this should be considered neoplastic until proven otherwise. There is no other hypermetabolic activity within the abdomen or pelvis to suggest metastatic disease. There is increased activity associated with the ostomy site on the right. Increased activity of the bowel in this area is probably physiologic in nature. There does seem to be fairly diffuse hypermetabolic activity of the skin in the region of the ostomy site. The CT images failed to show any sign of a mass or abscess but the possibility that there is an inflammatory/infectious process in this area should still be considered. However, there are several hypermetabolic masses involving the right lung and the right hilum. This includes a lobulated 1.7 cm mass along the posterior aspect of the right upper lobe. This has a maximum SUV of 8.0. At this same level, along the medial aspect of the right lung base, there is another 1.7 cm mass. This mass has a maximum SUV of the of 6.9. A smaller 1.2 cm hypermetabolic mass (maximum SUV 5.0) is also seen along the medial aspect of the right upper lung. There is also a 1.7 cm area of hypermetabolic activity within the right hilum. This has a maximum SUV of 5.6. All these findings should be considered secondary to metastatic disease until proven otherwise. There is no other hypermetabolic activity to suggest the presence of malignancy. Physiologic activity is seen in the brain, heart, kidneys, bowel and the bladder. The CT images are unremarkable for an acute abnormality of the chest or were neck. The intracranial contents where visualized are unremarkable. IMPRESSION: 1. The abnormal density low in the pelvis on the right seen on the recent CT abdomen/pelvis exam is hypermetabolic and should be considered neoplastic until proven otherwise. There are also multiple hypermetabolic nodules involving the right lung and the right hilum. These too are most likely due to metastatic disease. 3. There is no other hypermetabolic activity to suggest the presence of malignancy. 4. The increased activity in the skin associated with the ostomy site on the right may be related to the recent insertion of the ostomy. The possibility that there is an inflammatory/infectious process in this area should also be considered. 5. There is no acute abnormality noted otherwise. Dictated by: Dictated on workstation # [id number]
== END ==
LOC: RAD 10:30
PROVIDERS: ATTEND Urology
DX: C67.9 Malignant neoplasm of bladder, unspecified (principal); R91.8 Other nonspecific abnormal finding of lung field
CPT/HCPCS: 78815; A9552

== ENCOUNTER 2020-06-05 14:44 | Outpatient (RCR) | payer MEDICARE, OTHER ==
[2020-06-05 15:10] LABS: BASOPHILS % (AUTO) 0 % (0-10); EOSINOPHILS # (AUTO) 0.3 10^3/uL (0.0-0.3); EOSINOPHILS % (AUTO) 4 % (0-10); HEMATOCRIT 33 % (40-54); HEMOGLOBIN 9.6 g/dL (13.3-17.7); LYMPHOCYTES # (AUTO) 0.7 10^3/uL (1.0-4.0); LYMPHOCYTES % (AUTO) 8 % (12-44); MEAN CORPUSCULAR HEMOGLOBIN 22 pg (25-34); MEAN CORPUSCULAR HGB CONC 29 g/dL (32-36); MEAN CORPUSCULAR VOLUME 75 fL (80-99); MEAN PLATELET VOLUME 10.1 fL (9.0-12.2); MONOCYTES # (AUTO) 0.8 10^3/uL (0.0-1.0); MONOCYTES % (AUTO) 10 % (0-12); NEUTROPHILS # (AUTO) 6.8 10^3/uL (1.8-7.8); NEUTROPHILS % (AUTO) 79 % (42-75); PLATELET COUNT 195 10^3/uL (130-400); WHITE BLOOD COUNT 8.6 10^3/uL (4.3-11.0)
[2020-06-05 15:28] LABS: ALBUMIN 3.2 GM/DL (3.2-4.5); BILIRUBIN,TOTAL 0.2 MG/DL (0.1-1.0); CALCIUM 8.2 MG/DL (8.5-10.1); CREATININE SERUM 1.79 MG/DL (0.60-1.30); POTASSIUM 4.1 MMOL/L (3.6-5.0); TOTAL PROTEIN 6.1 GM/DL (6.4-8.2)
== END 2020-07-22 | disposition home or self-care (01) ==
LOC: ONC 14:44
PROVIDERS: ATTEND Internal Medicine Hematology & Oncology
DX: C67.9 Malignant neoplasm of bladder, unspecified (principal)
CPT/HCPCS: 77290; 77295; 77300; 77334; 77336; 77417; 77470; 80053; 82728; 83540; 85025; 99205; 99213; 99215

== ENCOUNTER 2020-09-23 13:01 | Outpatient (RCR) | payer MEDICARE, OTHER ==
[2020-07-24 15:00] LABS: BASOPHILS % (AUTO) 0 % (0-10); EOSINOPHILS # (AUTO) 0.2 10^3/uL (0.0-0.3); EOSINOPHILS % (AUTO) 2 % (0-10); HEMATOCRIT 35 % (40-54); HEMOGLOBIN 10.1 g/dL (13.3-17.7); LYMPHOCYTES # (AUTO) 0.7 10^3/uL (1.0-4.0); LYMPHOCYTES % (AUTO) 7 % (12-44); MEAN CORPUSCULAR HEMOGLOBIN 22 pg (25-34); MEAN CORPUSCULAR HGB CONC 29 g/dL (32-36); MEAN CORPUSCULAR VOLUME 78 fL (80-99); MONOCYTES # (AUTO) 0.9 10^3/uL (0.0-1.0); MONOCYTES % (AUTO) 9 % (0-12); NEUTROPHILS # (AUTO) 8.1 10^3/uL (1.8-7.8); NEUTROPHILS % (AUTO) 81 % (42-75); PLATELET COUNT 208 10^3/uL (130-400); WHITE BLOOD COUNT 9.9 10^3/uL (4.3-11.0)
[2020-07-24 15:13] LABS: ALBUMIN 3.3 GM/DL (3.2-4.5)
[2020-07-24 15:14] LABS: CALCIUM 8.1 MG/DL (8.5-10.1)
[2020-07-24 15:16] LABS: TOTAL PROTEIN 6.2 GM/DL (6.4-8.2)
[2020-07-24 15:17] LABS: BILIRUBIN,TOTAL 0.3 MG/DL (0.1-1.0)
[2020-07-24 15:19] LABS: CREATININE SERUM 1.69 MG/DL (0.60-1.30)
[~2020-09-23 13:01] MED LIST changes: -SULF1TAB35 PO; +SULF1TAB38 PO
[2020-09-23 13:13] LABS: BASOPHILS % (AUTO) 0 % (0-10); EOSINOPHILS # (AUTO) 0.2 10^3/uL (0.0-0.3); EOSINOPHILS % (AUTO) 1 % (0-10); HEMATOCRIT 35 % (40-54); HEMOGLOBIN 10.6 g/dL (13.3-17.7); LYMPHOCYTES # (AUTO) 0.5 10^3/uL (1.0-4.0); LYMPHOCYTES % (AUTO) 4 % (12-44); MEAN CORPUSCULAR HEMOGLOBIN 24 pg (25-34); MEAN CORPUSCULAR HGB CONC 30 g/dL (32-36); MEAN CORPUSCULAR VOLUME 80 fL (80-99); MEAN PLATELET VOLUME 9.8 fL (9.0-12.2); MONOCYTES % (AUTO) 7 % (0-12); NEUTROPHILS # (AUTO) 11.6 10^3/uL (1.8-7.8); NEUTROPHILS % (AUTO) 87 % (42-75); PLATELET COUNT 289 10^3/uL (130-400); WHITE BLOOD COUNT 13.3 10^3/uL (4.3-11.0)
[2020-09-23 13:41] LABS: ALBUMIN 3.1 GM/DL (3.2-4.5); BILIRUBIN,TOTAL 0.4 MG/DL (0.1-1.0); CALCIUM 8.7 MG/DL (8.5-10.1); CREATININE SERUM 1.52 MG/DL (0.60-1.30); POTASSIUM 4.1 MMOL/L (3.6-5.0); TOTAL PROTEIN 6.3 GM/DL (6.4-8.2)
== END 2020-10-22 | disposition home or self-care (01) ==
LOC: ONC 13:01
PROVIDERS: ATTEND Internal Medicine Hematology & Oncology
DX: C67.9 Malignant neoplasm of bladder, unspecified (principal); I25.10 Atherosclerotic heart disease of native coronary artery without angina pectoris; Z90.6 Acquired absence of other parts of urinary tract; Z92.3 Personal history of irradiation
CPT/HCPCS: 80053; 85025; G0463; 84443; 99213